=== PATIENT | male | born 1955 | race Caucasian/White ===

== ENCOUNTER → 2019-02-05 | Outpatient (CLI) | payer OTHER ==
[~2019-02-05] MED LIST: ACET325T14 PO; AMLO-150 PO; CITA20TA6 PO; DICL50TA2 PO; DICL75TA3 PO; DOXY100T PO; FEXO1TAB29 PO; GLUC-111 PO; HYDR50TA3 PO; MULT-642 PO; OMEG1CAP26 PO; OXYC-307 PO; TRAM100T3 PO; TRIA1TAB3 PO
[2019-02-05 09:13] LABS: HCT (SEDRATE) 46.1 % (39.2-51.8)
[2019-02-05 09:15] LABS: BASOPHILS # (AUTO) 0.03 x10^3/uL (0-0.1); BASOPHILS % (AUTO) 0 % (0-1); EOSINOPHILS % (AUTO) 4 % (1-7); LYMPHOCYTES # (AUTO) 1.74 x10^3/uL (1-3.4); LYMPHOCYTES % (AUTO) 21 % (22-44); MD NO; MEAN CORPUSCULAR HEMOGLOBIN 31.6 pg (27.5-34.5); MEAN CORPUSCULAR HGB CONC 33.9 g/dL (33.2-36.2); MEAN CORPUSCULAR VOLUME 93.4 fL (81-97); MEAN PLATELET VOLUME 8.4 fL (7.4-10.4); MONOCYTES # (AUTO) 0.51 x10^3/uL (0.2-0.8); MONOCYTES % (AUTO) 6 % (2-9); NEUTROPHILS # (AUTO) 5.81 x10^3/uL (1.8-6.8); NEUTROPHILS % (AUTO) 69 % (42-75); PLATELET COUNT 251 x10^3/uL (130-400); RED BLOOD COUNT 4.93 x10^6/uL (4.38-5.82); RED CELL DISTRIBUTION WIDTH 13.7 % (9.4-14.8)
[2019-02-05 09:28] LABS: INTERNATIONAL NORMALIZED RATIO 0.95 (0.93-1.1)
[2019-02-05 09:46] LABS: MICROSCOPIC NOT IND
[2019-02-05 09:56] LABS: CULTURE INDICATED? NO
[2019-02-05 10:28] LABS: ALBUMIN 3.9 g/dL (3.4-5.0); ANION GAP 6 mmol/L (5-15); CHLORIDE 111 mmol/L (98-107)
[2019-02-05 10:31] LABS: ALANINE AMINOTRANSFERASE 31 U/L (12-78); ALKALINE PHOSPHATASE 88 U/L (45-117); BILIRUBIN,TOTAL 0.8 mg/dL (0.2-1.0); CREATININE 1.55 mg/dL (0.7-1.3)
== END | disposition home or self-care (01) ==
LOC: STAR 07:55
PROVIDERS: ATTEND Orthopaedic Surgery Orthopaedic Surgery of the Spine
DX: Z01.818 Encounter for other preprocedural examination (principal); M51.36 Other intervertebral disc degeneration, lumbar region; M48.061 Spinal stenosis, lumbar region without neurogenic claudication; M54.16 Radiculopathy, lumbar region
CPT/HCPCS: 36415; 71046; 80053; 81003; 85025; 85610; 85651; 85730; 93005

== ENCOUNTER 2019-02-23 07:53 | Inpatient (IN) | payer OTHER ==
[~2019-02-23] VITALS: Ht 190.5 cm; Wt 114.7 kg
[~2019-02-23 07:53] MED LIST changes: +BACITRACIN 50,000 UNIT ONE; +BUPIVACAINE/PF 0.5% ONE; +EPINEPHRINE 1 MG/ML, 1ML ONE; +THROMBIN 20,000 UNIT VIAL TP ONE; +TRANEXAMIC ACID 100 MG/ML, 10ML ONE; +VANCOMYCIN 1,000 MG ONE
[2019-02-23] MEDS ORDERED: LACTATED RINGERS 1,000 ML IV SCH (08:15)
[2019-02-23] MEDS ORDERED: PROPOFOL 50 ML ONE ×6 (09:29→13:25)
[2019-02-23] MEDS ORDERED: PROPOFOL 10 MG/ML, 20ML ONE ×4 (09:29→12:21)
[2019-02-23] MEDS ORDERED: CEFAZOLIN 1,000 MG ONE ×2 (09:29)
[2019-02-23] MEDS ORDERED: MIDAZOLAM 1 MG/ML, 2ML ONE (09:32)
[2019-02-23] MEDS ORDERED: FENTANYL PF 100 MCG/2ML ONE ×3 (09:33→15:26)
[2019-02-23] MEDS ORDERED: VANCOMYCIN PMX 1GM/200ML 200 ML IV ONE (10:30)
[2019-02-23] MEDS ORDERED: MEPERIDINE/PF 25MG/0.5ML IVPush PRN (11:00)
[2019-02-23] MEDS ORDERED: MORPHINE SULFATE 4 MG/ML, 1ML IVPush PRN (11:00)
[2019-02-23] MEDS ORDERED: FENTANYL PF 100 MCG/2ML IV PRN (11:00)
[2019-02-23] MEDS ORDERED: OXYcodone 5 MG/5 ML ORAL.SOL UDC PO PRN (11:00)
[2019-02-23] MEDS ORDERED: HYDROcodone/APAP 7.5-325MG/15ML UDC PO PRN (11:00)
[2019-02-23] MEDS ORDERED: HYDROmorphone 2 MG/ML, 1ML IVPush PRN (11:00)
[2019-02-23] MEDS ORDERED: ACETAMINOPHEN 325 MG TABLET PO PRN (11:00)
[2019-02-23] MEDS ORDERED: SUGAMMADEX 200 MG/2 ML IVPush ONE (12:44)
[2019-02-23] MEDS ORDERED: PHENYLEPHRINE 10 MG/ML ONE (13:20)
[2019-02-23] MEDS ORDERED: ROCURONIUM 10 MG/ML,10ML ONE (13:20)
[2019-02-23] MEDS ORDERED: OXYcodone 5 MG/5 ML ORAL.SOL UDC ONE (15:26)
[2019-02-23 18:20] VITALS: BP 129/78
[2019-02-23] MEDS ORDERED: morphine SULFATE 10 MG/ML, 1ML IV PRN (18:30)
[2019-02-23] MEDS ORDERED: PROMETHAZINE 25 MG/ML, 1ML IM PRN (18:30)
[2019-02-23] MEDS ORDERED: DIAZEPAM 5 MG/ML, 2ML IV PRN (18:30)
[2019-02-23] MEDS ORDERED: DIPHENHYDRAMINE 50 MG CAPSULE PO PRN (18:30)
[2019-02-23] MEDS ORDERED: KETOROLAC 30 MG/1 ML IV PRN (18:30)
[2019-02-23] MEDS ORDERED: LORazepam 1MG TABLET PO PRN (18:30)
[2019-02-23] MEDS ORDERED: ACETAMINOPHEN 650 MG SUPP PR PRN (18:30)
[2019-02-23] MEDS ORDERED: MAGNESIUM HYDROXIDE 8%, 30ML UDC PO PRN (18:30)
[2019-02-23] MEDS ORDERED: ONDANSETRON 2MG/ML, 2ML IV PRN (18:30)
[2019-02-23] MEDS ORDERED: LABETALOL 5MG/ML, 20ML IV PRN (18:30)
[2019-02-23] MEDS ORDERED: DIPHENHYDRAMINE 50 MG/ML, 1ML IM PRN (18:30)
[2019-02-23] MEDS ORDERED: DIPHENHYDRAMINE 50 MG/ML, 1ML IVPush PRN (18:30)
[2019-02-23] MEDS ORDERED: BISACODYL 10 MG SUPP PR PRN (18:30)
[2019-02-23] MEDS: D5%-0.9% NACL+KCL 20MEQ 1,000 ML IV SCH (18:36)
[2019-02-23] MEDS: CEFAZOLIN PMX 1GM/50ML 50 ML IVPB SCH (18:41)
[2019-02-23] MEDS ORDERED: ZOLPIDEM 5MG TABLET PO PRN (21:00)
[2019-02-24] VITALS: BP 116/60
[2019-02-24] MEDS: CEFAZOLIN PMX 1GM/50ML 50 ML IVPB SCH (02:37)
[2019-02-24] MEDS: D5%-0.9% NACL+KCL 20MEQ 1,000 ML IV SCH ×3 (05:23→23:07)
[2019-02-24 05:41] LABS: BASOPHILS % (AUTO) 0 % (0-1); EOSINOPHILS # (AUTO) 0.01 x10^3/uL (0-0.4); EOSINOPHILS % (AUTO) 0 % (1-7); LYMPHOCYTES # (AUTO) 0.79 x10^3/uL (1-3.4); LYMPHOCYTES % (AUTO) 7 % (22-44); MD NO; MEAN CORPUSCULAR HEMOGLOBIN 31.9 pg (27.5-34.5); MEAN CORPUSCULAR VOLUME 93.7 fL (81-97); MEAN PLATELET VOLUME 8.8 fL (7.4-10.4); MONOCYTES # (AUTO) 0.77 x10^3/uL (0.2-0.8); MONOCYTES % (AUTO) 7 % (2-9); NEUTROPHILS % (AUTO) 86 % (42-75); PLATELET COUNT 170 x10^3/uL (130-400); RED BLOOD COUNT 4.11 x10^6/uL (4.38-5.82); RED CELL DISTRIBUTION WIDTH 14.2 % (9.4-14.8)
[2019-02-24] MEDS: DIAZEPAM 5 MG TABLET PO PRN (06:44)
[2019-02-24 07:33] VITALS: BP 113/56
[2019-02-24] MEDS: SENNA/DOCUSATE TABLET PO SCH (08:17)
[2019-02-24] MEDS: DEXAMETHASONE 4 MG/ML, 1ML IVPush PRN (08:18)
[2019-02-24] MEDS: ACETAMINOPHEN 500 MG TABLET PO PRN (10:21)
[2019-02-24 12:42] VITALS: BP 96/59
[2019-02-24 19:22] VITALS: BP 115/64
[2019-02-25 00:11] VITALS: BP 119/59
[2019-02-25] MEDS: KETOROLAC 30 MG/1 ML IV PRN ×2 (01:35→20:07)
[2019-02-25] MEDS: D5%-0.9% NACL+KCL 20MEQ 1,000 ML IV SCH ×2 (01:40→20:07)
[2019-02-25 05:18] LABS: BASOPHILS # (AUTO) 0.04 x10^3/uL (0-0.1); BASOPHILS % (AUTO) 0 % (0-1); EOSINOPHILS # (AUTO) 0.03 x10^3/uL (0-0.4); EOSINOPHILS % (AUTO) 0 % (1-7); LYMPHOCYTES # (AUTO) 1.16 x10^3/uL (1-3.4); LYMPHOCYTES % (AUTO) 11 % (22-44); MD NO; MEAN CORPUSCULAR HGB CONC 33.7 g/dL (33.2-36.2); MEAN CORPUSCULAR VOLUME 94.9 fL (81-97); MEAN PLATELET VOLUME 8.3 fL (7.4-10.4); MONOCYTES # (AUTO) 0.74 x10^3/uL (0.2-0.8); MONOCYTES % (AUTO) 7 % (2-9); NEUTROPHILS # (AUTO) 8.57 x10^3/uL (1.8-6.8); NEUTROPHILS % (AUTO) 81 % (42-75); PLATELET COUNT 122 x10^3/uL (130-400); RED BLOOD COUNT 3.51 x10^6/uL (4.38-5.82); RED CELL DISTRIBUTION WIDTH 14.6 % (9.4-14.8)
[2019-02-25 05:25] LABS: ANION GAP 7 mmol/L (5-15); CALCIUM 7.8 mg/dL (8.5-10.1); CHLORIDE 110 mmol/L (98-107); CREATININE 1.78 mg/dL (0.7-1.3)
[2019-02-25 07:19] VITALS: BP 95/51
[2019-02-25] MEDS: AMLODIPINE 5 MG TABLET PO SCH (09:00)
[2019-02-25] MEDS: OMEGA-3/FISH OIL CAPSULE PO SCH (09:06)
[2019-02-25] MEDS: TRIAMTERENE-HCTZ 37.5/25 MG TABLET PO SCH (09:08)
[2019-02-25] MEDS: CITALOPRAM 20 MG TABLET PO SCH (09:08)
[2019-02-25] MEDS: SENNA/DOCUSATE TABLET PO SCH (09:09)
[2019-02-25] MEDS: MULTIVITAMIN 1 TABLET PO SCH (09:09)
[2019-02-25 09:11] VITALS: BP 93/59
[2019-02-25] MEDS: ACETAMINOPHEN 500 MG TABLET PO PRN (11:56)
[2019-02-25 12:28] VITALS: BP 107/66
[2019-02-25 16:07] VITALS: BP 114/58
[2019-02-25] MEDS: OXYcodone IR 5MG TABLET PO PRN ×2 (16:11→16:43)
[2019-02-25 21:28] VITALS: BP 103/56
[2019-02-26 02:46] VITALS: BP 98/61
[2019-02-26 06:29] LABS: BASOPHILS # (AUTO) 0.05 x10^3/uL (0-0.1); BASOPHILS % (AUTO) 1 % (0-1); EOSINOPHILS # (AUTO) 0.24 x10^3/uL (0-0.4); EOSINOPHILS % (AUTO) 2 % (1-7); LYMPHOCYTES % (AUTO) 13 % (22-44); MD NO; MEAN CORPUSCULAR HEMOGLOBIN 32.7 pg (27.5-34.5); MEAN CORPUSCULAR HGB CONC 34.8 g/dL (33.2-36.2); MEAN CORPUSCULAR VOLUME 94.1 fL (81-97); MEAN PLATELET VOLUME 9.1 fL (7.4-10.4); MONOCYTES # (AUTO) 0.76 x10^3/uL (0.2-0.8); MONOCYTES % (AUTO) 8 % (2-9); NEUTROPHILS # (AUTO) 7.77 x10^3/uL (1.8-6.8); NEUTROPHILS % (AUTO) 77 % (42-75); PLATELET COUNT 130 x10^3/uL (130-400); RED BLOOD COUNT 3.46 x10^6/uL (4.38-5.82); RED CELL DISTRIBUTION WIDTH 14.2 % (9.4-14.8)
[2019-02-26] MEDS: D5%-0.9% NACL+KCL 20MEQ 1,000 ML IV SCH ×2 (06:30→16:30)
[2019-02-26 06:38] LABS: ANION GAP 5 mmol/L (5-15); CALCIUM 8.5 mg/dL (8.5-10.1); CHLORIDE 110 mmol/L (98-107); CREATININE 1.53 mg/dL (0.7-1.3)
[2019-02-26 07:30] VITALS: BP 111/52
[2019-02-26] MEDS: OMEGA-3/FISH OIL CAPSULE PO SCH (07:57)
[2019-02-26] MEDS: TRIAMTERENE-HCTZ 37.5/25 MG TABLET PO SCH (07:58)
[2019-02-26] MEDS: MULTIVITAMIN 1 TABLET PO SCH (07:58)
[2019-02-26] MEDS: AMLODIPINE 5 MG TABLET PO SCH (07:58)
[2019-02-26] MEDS: CITALOPRAM 20 MG TABLET PO SCH (07:58)
[2019-02-26] MEDS: SENNA/DOCUSATE TABLET PO SCH (07:59)
[2019-02-26] MEDS: OXYcodone IR 5MG TABLET PO PRN ×2 (08:41→12:14)
[2019-02-26 14:05] VITALS: BP 147/57
[2019-02-26] MEDS: KETOROLAC 30 MG/1 ML IV PRN (16:01)
[2019-02-26] MEDS: DEXAMETHASONE 4 MG/ML, 1ML IVPush PRN ×2 (16:01→21:59)
[2019-02-26 20:02] VITALS: BP 108/67
[2019-02-27 02:31] VITALS: BP 112/70
[2019-02-27] MEDS: D5%-0.9% NACL+KCL 20MEQ 1,000 ML IV SCH ×3 (04:37→22:30)
[2019-02-27 05:47] LABS: BASOPHILS % (AUTO) 0 % (0-1); EOSINOPHILS % (AUTO) 0 % (1-7); LYMPHOCYTES # (AUTO) 0.52 x10^3/uL (1-3.4); LYMPHOCYTES % (AUTO) 7 % (22-44); MD NO; MEAN CORPUSCULAR VOLUME 94.2 fL (81-97); MEAN PLATELET VOLUME 9.4 fL (7.4-10.4); MONOCYTES # (AUTO) 0.19 x10^3/uL (0.2-0.8); MONOCYTES % (AUTO) 3 % (2-9); NEUTROPHILS # (AUTO) 6.62 x10^3/uL (1.8-6.8); NEUTROPHILS % (AUTO) 90 % (42-75); PLATELET COUNT 148 x10^3/uL (130-400); RED BLOOD COUNT 3.61 x10^6/uL (4.38-5.82); RED CELL DISTRIBUTION WIDTH 14.3 % (9.4-14.8)
[2019-02-27 05:50] LABS: ANION GAP 8 mmol/L (5-15); CALCIUM 8.9 mg/dL (8.5-10.1); CHLORIDE 107 mmol/L (98-107)
[2019-02-27] MEDS: KETOROLAC 30 MG/1 ML IV PRN ×2 (08:06→20:39)
[2019-02-27 08:15] VITALS: BP 118/74
[2019-02-27] MEDS: OMEGA-3/FISH OIL CAPSULE PO SCH (09:53)
[2019-02-27] MEDS: TRIAMTERENE-HCTZ 37.5/25 MG TABLET PO SCH (09:53)
[2019-02-27] MEDS: SENNA/DOCUSATE TABLET PO SCH (09:53)
[2019-02-27] MEDS: CITALOPRAM 20 MG TABLET PO SCH (09:53)
[2019-02-27] MEDS: MULTIVITAMIN 1 TABLET PO SCH (09:53)
[2019-02-27] MEDS: AMLODIPINE 5 MG TABLET PO SCH (09:53)
[2019-02-27 12:00] VITALS: BP 116/67
[2019-02-27 19:15] VITALS: BP 116/65
[2019-02-27] MEDS: DIAZEPAM 5 MG TABLET PO PRN (20:39)
[2019-02-28 00:44] VITALS: BP 114/69
[2019-02-28 07:36] LABS: MEAN CORPUSCULAR HEMOGLOBIN 31.8 pg (27.5-34.5); MEAN CORPUSCULAR HGB CONC 33.6 g/dL (33.2-36.2); MEAN CORPUSCULAR VOLUME 94.5 fL (81-97); MEAN PLATELET VOLUME 9.2 fL (7.4-10.4); PLATELET COUNT 208 x10^3/uL (130-400); RED BLOOD COUNT 3.56 x10^6/uL (4.38-5.82)
[2019-02-28 07:40] LABS: ANION GAP 7 mmol/L (5-15); CALCIUM 9.1 mg/dL (8.5-10.1); CHLORIDE 111 mmol/L (98-107); CREATININE 1.37 mg/dL (0.7-1.3)
[2019-02-28 07:47] LABS: BASOPHILS # (AUTO) 0.02 x10^3/uL (0-0.1); BASOPHILS % (AUTO) 0 % (0-1); EOSINOPHILS # (AUTO) 0.04 x10^3/uL (0-0.4); EOSINOPHILS % (AUTO) 0 % (1-7); LYMPHOCYTES # (AUTO) 1.47 x10^3/uL (1-3.4); LYMPHOCYTES % (AUTO) 13 % (22-44); MD NO; MONOCYTES # (AUTO) 0.72 x10^3/uL (0.2-0.8); MONOCYTES % (AUTO) 7 % (2-9); NEUTROPHILS % (AUTO) 80 % (42-75)
[2019-02-28] MEDS: CITALOPRAM 20 MG TABLET PO SCH (08:30)
[2019-02-28] MEDS: AMLODIPINE 5 MG TABLET PO SCH (08:30)
[2019-02-28] MEDS: MULTIVITAMIN 1 TABLET PO SCH (08:30)
[2019-02-28] MEDS: OMEGA-3/FISH OIL CAPSULE PO SCH (08:30)
[2019-02-28] MEDS: TRIAMTERENE-HCTZ 37.5/25 MG TABLET PO SCH (08:30)
[2019-02-28] MEDS: SENNA/DOCUSATE TABLET PO SCH (08:30)
[2019-02-28] MEDS: KETOROLAC 30 MG/1 ML IV PRN (08:30)
[2019-02-28] MEDS: D5%-0.9% NACL+KCL 20MEQ 1,000 ML IV SCH (08:30)
[2019-02-28 08:49] VITALS: BP 107/68
[2019-02-28] MEDS: ACETAMINOPHEN 500 MG TABLET PO PRN (11:30)
[2019-02-28 12:30] VITALS: BP 119/72
[2019-02-28 13:22] VITALS: BP 133/81
[2019-02-28] MEDS ORDERED: OXYC10TA6 PO (13:54)
[2019-02-28] MEDS ORDERED: DIAZ5TAB4 PO (13:56)
[2019-02-28] MEDS ORDERED: CEPH-368 PO (13:57)
== END 2019-02-28 15:00 | disposition home health service (06) | DRG 455 ==
LOC: ORIP 07:53 → 4NOR 17:30 → DCLOUNGE 02-28 13:56
PROVIDERS: ADMIT Orthopaedic Surgery Orthopaedic Surgery of the Spine; ATTEND Orthopaedic Surgery Orthopaedic Surgery of the Spine
PROC: 0SG10AJ Fusion of 2 or more Lumbar Vertebral Joints with Interbody Fusion Device, Posterior Approach, Anterior Column, Open Approach (ICD-10-PCS; 2019-02-23)
PROC: 0SG1071 Fusion of 2 or more Lumbar Vertebral Joints with Autologous Tissue Substitute, Posterior Approach, Posterior Column, Open Approach (ICD-10-PCS; 2019-02-23)
PROC: 0SP004Z Removal of Internal Fixation Device from Lumbar Vertebral Joint, Open Approach (ICD-10-PCS; 2019-02-23)
PROC: 0QB23ZZ Excision of Right Pelvic Bone, Percutaneous Approach (ICD-10-PCS; 2019-02-23)
PROC: 0ST20ZZ Resection of Lumbar Vertebral Disc, Open Approach (ICD-10-PCS; 2019-02-23)
PROC: 01NB0ZZ Release Lumbar Nerve, Open Approach (ICD-10-PCS; 2019-02-23)
PROC: 01NR0ZZ Release Sacral Nerve, Open Approach (ICD-10-PCS; 2019-02-23)
PROC: 0ST40ZZ Resection of Lumbosacral Disc, Open Approach (ICD-10-PCS; 2019-02-23)
PROC: 0SG30AJ Fusion of Lumbosacral Joint with Interbody Fusion Device, Posterior Approach, Anterior Column, Open Approach (ICD-10-PCS; 2019-02-23)
PROC: 0SG3071 Fusion of Lumbosacral Joint with Autologous Tissue Substitute, Posterior Approach, Posterior Column, Open Approach (ICD-10-PCS; 2019-02-23)
PROC: 4A11X4G Monitoring of Peripheral Nervous Electrical Activity, Intraoperative, External Approach (ICD-10-PCS; 2019-02-23)
PROC: 0SP304Z Removal of Internal Fixation Device from Lumbosacral Joint, Open Approach (ICD-10-PCS; principal; 2019-02-23 09:30)
PROC: 5A09357 Assistance with Respiratory Ventilation, Less than 24 Consecutive Hours, Continuous Positive Airway Pressure (ICD-10-PCS; 2019-02-25)
PROC: 5A09357 Assistance with Respiratory Ventilation, Less than 24 Consecutive Hours, Continuous Positive Airway Pressure (ICD-10-PCS; 2019-02-26)
PROC: 5A09357 Assistance with Respiratory Ventilation, Less than 24 Consecutive Hours, Continuous Positive Airway Pressure (ICD-10-PCS; 2019-02-28)
DX: M48.061 Spinal stenosis, lumbar region without neurogenic claudication (principal); M43.16 Spondylolisthesis, lumbar region; M54.16 Radiculopathy, lumbar region
CPT/HCPCS: 36415; 72100; 80048; 85025; 86850; 86870; 86900; 86922; 86923; C1713; G0378; J0171; J0690; J1100; J1885; J2250; J2270; J2704; J3010; J3370; J3490; C1760; C1762; C1763; C9352; C9362; J2370; J3480

== ENCOUNTER → 2020-03-31 | Outpatient (CLI) | payer OTHER, MEDICARE ==
[~2020-03-31] MED LIST changes: -BACITRACIN 50,000 UNIT ONE; -BUPIVACAINE/PF 0.5% ONE; +CEPH-368 PO; +DIAZ5TAB4 PO; -EPINEPHRINE 1 MG/ML, 1ML ONE; +GABA-826 PO; +OXYC10TA6 PO; -THROMBIN 20,000 UNIT VIAL TP ONE; +TRAM50TA2 PO; -TRANEXAMIC ACID 100 MG/ML, 10ML ONE; -VANCOMYCIN 1,000 MG ONE
[2020-03-31 11:56] LABS: HCT (SEDRATE) 49.8 % (39.2-51.8)
[2020-03-31 11:57] LABS: BASOPHILS # (AUTO) 0.05 x10^3/uL (0-0.1); BASOPHILS % (AUTO) 1 % (0-1); EOSINOPHILS # (AUTO) 0.26 x10^3/uL (0-0.4); EOSINOPHILS % (AUTO) 4 % (1-7); LYMPHOCYTES # (AUTO) 1.51 x10^3/uL (1-3.4); LYMPHOCYTES % (AUTO) 21 % (22-44); MD NO; MEAN CORPUSCULAR HEMOGLOBIN 31.8 pg (27.5-34.5); MEAN CORPUSCULAR HGB CONC 33.8 g/dL (33.2-36.2); MEAN CORPUSCULAR VOLUME 94.1 fL (81-97); MEAN PLATELET VOLUME 9.7 fL (7.4-10.4); MONOCYTES # (AUTO) 0.62 x10^3/uL (0.2-0.8); MONOCYTES % (AUTO) 9 % (2-9); NEUTROPHILS # (AUTO) 4.74 x10^3/uL (1.8-6.8); NEUTROPHILS % (AUTO) 66 % (42-75); PLATELET COUNT 205 x10^3/uL (130-400); RED BLOOD COUNT 5.29 x10^6/uL (4.38-5.82)
[2020-03-31 12:03] LABS: INTERNATIONAL NORMALIZED RATIO 0.93 (0.93-1.1); PROTHROMBIN TIME 9.9 Seconds (9.6-11.5)
[2020-03-31 12:06] LABS: ALBUMIN 3.9 g/dL (3.4-5.0); ANION GAP 4 mmol/L (5-15); CHLORIDE 109 mmol/L (98-107)
[2020-03-31 12:12] LABS: ALANINE AMINOTRANSFERASE 29 U/L (12-78); ALKALINE PHOSPHATASE 94 U/L (45-117); BILIRUBIN,TOTAL 0.7 mg/dL (0.2-1.0); CREATININE 1.45 mg/dL (0.7-1.3); TOTAL PROTEIN 8.4 g/dL (6.4-8.2)
== END | disposition home or self-care (01) ==
LOC: STAR 10:46
PROVIDERS: ATTEND Orthopaedic Surgery Orthopaedic Surgery of the Spine
DX: Z01.818 Encounter for other preprocedural examination (principal); Z11.59 Encounter for screening for other viral diseases; T85.898A Other specified complication of other internal prosthetic devices, implants and grafts, initial encounter; Y83.8 Other surgical procedures as the cause of abnormal reaction of the patient, or of later complication, without mention of misadventure at the time of the procedure; Y92.89 Other specified places as the place of occurrence of the external cause
CPT/HCPCS: 36415; 71046; 80053; 83036; 85025; 85610; 85651; 85730; 93005; U0001

== ENCOUNTER → 2020-05-27 | Outpatient (CLI) | payer OTHER, MEDICARE | END | disposition home or self-care (01) | LOC: RAD 16:58 | PROVIDERS: ATTEND Family Medicine | DX: M25.572 Pain in left ankle and joints of left foot (principal) ==

== ENCOUNTER → 2020-06-23 | Outpatient (CLI) | payer OTHER, MEDICARE ==
[~2020-06-23] MED LIST changes: +BUDE10.2 INH; +CYAN1TAB29 PO; +POTA10TA5 PO; +PREG150C PO; +[UNRECOGNIZED DRUG - REMARK] TP
== END | disposition home or self-care (01) ==
LOC: STAR 10:36
PROVIDERS: ATTEND Orthopaedic Surgery Orthopaedic Surgery of the Spine
DX: Z01.818 Encounter for other preprocedural examination (principal); Z11.59 Encounter for screening for other viral diseases
CPT/HCPCS: 36415; 87635

== ENCOUNTER 2020-06-27 07:33 | Inpatient (IN) | payer OTHER, MEDICARE ==
[2020-06-24 11:14] LABS: BASOPHILS # (AUTO) 0.03 x10^3/uL (0-0.1); BASOPHILS % (AUTO) 1 % (0-1); EOSINOPHILS # (AUTO) 0.18 x10^3/uL (0-0.4); EOSINOPHILS % (AUTO) 3 % (1-7); HCT (SEDRATE) 47.7 % (39.2-51.8); LYMPHOCYTES # (AUTO) 1.27 x10^3/uL (1-3.4); LYMPHOCYTES % (AUTO) 19 % (22-44); MD NO; MEAN CORPUSCULAR HEMOGLOBIN 32.1 pg (27.5-34.5); MEAN CORPUSCULAR HGB CONC 33.8 g/dL (33.2-36.2); MEAN CORPUSCULAR VOLUME 94.8 fL (81-97); MEAN PLATELET VOLUME 9.3 fL (7.4-10.4); MONOCYTES # (AUTO) 0.44 x10^3/uL (0.2-0.8); MONOCYTES % (AUTO) 7 % (2-9); NEUTROPHILS # (AUTO) 4.67 x10^3/uL (1.8-6.8); NEUTROPHILS % (AUTO) 71 % (42-75); PLATELET COUNT 190 x10^3/uL (130-400); RED BLOOD COUNT 5.01 x10^6/uL (4.38-5.82); RED CELL DISTRIBUTION WIDTH 14.2 % (9.4-14.8)
[2020-06-24 11:24] LABS: INTERNATIONAL NORMALIZED RATIO 0.97 (0.93-1.1)
[2020-06-24 11:25] LABS: ALANINE AMINOTRANSFERASE 32 U/L (12-78); ALBUMIN 4.1 g/dL (3.4-5.0); ANION GAP 4 mmol/L (5-15); CALCIUM 9.2 mg/dL (8.5-10.1); CHLORIDE 113 mmol/L (98-107); CREATININE 1.38 mg/dL (0.7-1.3)
[2020-06-24 11:27] LABS: ALKALINE PHOSPHATASE 89 U/L (45-117); BILIRUBIN,TOTAL 0.8 mg/dL (0.2-1.0); TOTAL PROTEIN 7.9 g/dL (6.4-8.2)
[~2020-06-27] VITALS: Ht 190.5 cm; Wt 114.0 kg
[2020-06-27] MEDS ORDERED: LACTATED RINGERS 1,000 ML IV SCH (08:11)
[2020-06-27 08:12] VITALS: BP 151/82
[2020-06-27] MEDS ORDERED: CHLORHEXIDINE 15 ML UDC ONE (08:18)
[2020-06-27] MEDS ORDERED: CHLORHEXIDINE 15 ML UDC MM ONE (08:30)
[2020-06-27] MEDS ORDERED: VANCOMYCIN PMX 1GM/200ML 200 ML IV ONE (08:30)
[2020-06-27] MEDS ORDERED: TRANEXAMIC ACID 100 MG/ML, 10ML ONE ×2 (09:03)
[2020-06-27] MEDS ORDERED: BUPIVACAINE/PF-EPI 0.5% 1:200K ONE (09:03)
[2020-06-27] MEDS ORDERED: VANCOMYCIN 1,000 MG ONE (09:03)
[2020-06-27] MEDS ORDERED: BACITRACIN 50,000 UNIT ONE (09:03)
[2020-06-27] MEDS ORDERED: SODIUM CHLORIDE 0.9% 1,000 ML IV PRN (09:33)
[2020-06-27] MEDS ORDERED: FENTANYL PF 250 MCG/5ML ONE (09:36)
[2020-06-27] MEDS ORDERED: MIDAZOLAM 1 MG/ML, 2ML ONE (09:36)
[2020-06-27] MEDS ORDERED: morphine SULFATE 10 MG/ML, 1ML IVPush PRN (10:00)
[2020-06-27] MEDS ORDERED: BISACODYL 10 MG SUPP PR PRN (10:00)
[2020-06-27] MEDS ORDERED: DIPHENHYDRAMINE 50 MG/ML, 1ML IM PRN (10:00)
[2020-06-27] MEDS ORDERED: SENNA/DOCUSATE TABLET PO PRN (10:00)
[2020-06-27] MEDS ORDERED: OXYcodone IR 5MG TABLET PO PRN ×2 (10:00)
[2020-06-27] MEDS ORDERED: LORazepam 1MG TABLET PO PRN (10:00)
[2020-06-27] MEDS ORDERED: DEXAMETHASONE 4 MG/ML, 5ML IVPush PRN (10:00)
[2020-06-27] MEDS ORDERED: HYDROcodone/APAP 5/325 TABLET PO PRN (10:00)
[2020-06-27] MEDS ORDERED: MAGNESIUM HYDROXIDE 8%, 30ML UDC PO PRN (10:00)
[2020-06-27] MEDS ORDERED: ACETAMINOPHEN 500 MG TABLET PO PRN (10:00)
[2020-06-27] MEDS ORDERED: KETOROLAC 30 MG/1 ML IVPush ONE (10:00)
[2020-06-27] MEDS ORDERED: PROMETHAZINE 25 MG/ML, 1ML IM PRN (10:00)
[2020-06-27] MEDS ORDERED: DIAZEPAM 5 MG TABLET PO PRN (10:00)
[2020-06-27] MEDS ORDERED: LABETALOL 5MG/ML, 20ML IVPush PRN (10:00)
[2020-06-27] MEDS ORDERED: ONDANSETRON 2MG/ML, 2ML IV PRN (10:00)
[2020-06-27] MEDS ORDERED: FENTANYL PF 100 MCG/2ML ONE (11:04)
[2020-06-27] MEDS ORDERED: GLYCOPYRROLATE 0.2MG/1ML, 5ML ONE (11:18)
[2020-06-27] MEDS ORDERED: NEOSTIGMINE 1 MG/ML, 10ML ONE (11:18)
[2020-06-27] MEDS ORDERED: ONDANSETRON 2MG/ML, 2ML ONE (11:18)
[2020-06-27] MEDS ORDERED: PROPOFOL 10 MG/ML, 20ML ONE (11:18)
[2020-06-27] MEDS ORDERED: DEXAMETHASONE 4 MG/ML, 1ML ONE (11:18)
[2020-06-27] MEDS ORDERED: SUCCINYLCHOLINE 20 MG/ML, 10ML ONE (11:18)
[2020-06-27] MEDS ORDERED: CEFAZOLIN 1,000 MG ONE (11:18)
[2020-06-27] MEDS ORDERED: ROCURONIUM 10MG/ML,5ML ONE (11:18)
[2020-06-27] MEDS ORDERED: PROMETHAZINE 25 MG SUPP PR PRN (11:30)
[2020-06-27] MEDS ORDERED: ACETAMINOPHEN 325 MG TABLET PO PRN (11:30)
[2020-06-27] MEDS ORDERED: OXYcodone 5 MG/5 ML ORAL.SOL UDC PO PRN (11:30)
[2020-06-27] MEDS ORDERED: FENTANYL PF 100 MCG/2ML IV PRN (11:30)
[2020-06-27] MEDS ORDERED: ONDANSETRON 2MG/ML, 2ML IVPush PRN (11:30)
[2020-06-27] MEDS ORDERED: HYDROmorphone 1 MG/ML, 1ML INJ IVPush PRN (11:30)
[2020-06-27] MEDS ORDERED: PROMETHAZINE 25 MG/ML, 1ML IVPush PRN (11:30)
[2020-06-27] MEDS ORDERED: hydrALAzine 20 MG/ML, 1ML IV PRN (11:30)
[2020-06-27] MEDS ORDERED: LABETALOL 5MG/ML, 20ML IV PRN (11:30)
[2020-06-27] MEDS: METHOCARBAMOL 1,000 MG in DEXTROSE 5% 100 ML IV SCH ×2 (12:00→21:13)
[2020-06-27] MEDS ORDERED: KETOROLAC 30 MG/1 ML ONE (12:21)
[2020-06-27] MEDS ORDERED: OXYcodone 5 MG/5 ML ORAL.SOL UDC ONE (12:37)
[2020-06-27] MEDS ORDERED: ALBUTEROL SULFATE 2.5 MG/3 ML HHN SCH (14:00)
[2020-06-27] MEDS: DICLOFENAC SODIUM 75 MG TABLET.DR PO SCH (16:46)
[2020-06-27] MEDS: PREGABALIN 150 MG CAPSULE PO SCH ×2 (16:46→21:13)
[2020-06-27] MEDS: CYANOCOBALAMIN MC SCH ×2 (17:47→22:00)
[2020-06-27] MEDS: D5%-0.9% NACL+KCL 20MEQ 1,000 ML IV SCH ×2 (18:14→20:00)
[2020-06-27] MEDS: CEFAZOLIN PMX 1GM/50ML 50 ML IVPB SCH (18:14)
[2020-06-27 18:20] VITALS: BP 117/74
[2020-06-27] MEDS ORDERED: ZOLPIDEM 5MG TABLET PO PRN (21:00)
[2020-06-27] MEDS ORDERED: BUDESONIDE 0.5 MG/2 ML INHA HHN SCH (21:00)
[2020-06-28 01:06] VITALS: BP 105/61
[2020-06-28] MEDS: CEFAZOLIN PMX 1GM/50ML 50 ML IVPB SCH (02:36)
[2020-06-28 04:13] VITALS: BP 101/66
[2020-06-28] MEDS: METHOCARBAMOL 1,000 MG in DEXTROSE 5% 100 ML IV SCH ×2 (05:22→12:30)
[2020-06-28] MEDS: CYANOCOBALAMIN MC SCH (06:00)
[2020-06-28] MEDS: D5%-0.9% NACL+KCL 20MEQ 1,000 ML IV SCH (06:00)
[2020-06-28 06:54] LABS: BASOPHILS # (AUTO) 0.06 x10^3/uL (0-0.1); BASOPHILS % (AUTO) 1 % (0-1); EOSINOPHILS # (AUTO) 0.02 x10^3/uL (0-0.4); EOSINOPHILS % (AUTO) 0 % (1-7); LYMPHOCYTES # (AUTO) 1.01 x10^3/uL (1-3.4); LYMPHOCYTES % (AUTO) 9 % (22-44); MD NO; MEAN CORPUSCULAR HEMOGLOBIN 31.9 pg (27.5-34.5); MEAN CORPUSCULAR HGB CONC 33.3 g/dL (33.2-36.2); MEAN CORPUSCULAR VOLUME 95.9 fL (81-97); MEAN PLATELET VOLUME 9.3 fL (7.4-10.4); MONOCYTES # (AUTO) 0.87 x10^3/uL (0.2-0.8); MONOCYTES % (AUTO) 8 % (2-9); NEUTROPHILS # (AUTO) 9.74 x10^3/uL (1.8-6.8); NEUTROPHILS % (AUTO) 83 % (42-75); PLATELET COUNT 157 x10^3/uL (130-400); RED BLOOD COUNT 4.31 x10^6/uL (4.38-5.82); RED CELL DISTRIBUTION WIDTH 14.4 % (9.4-14.8)
[2020-06-28 08:22] VITALS: BP 116/71
[2020-06-28] MEDS: OMEGA-3/FISH OIL CAPSULE PO SCH ×2 (08:25→08:27)
[2020-06-28] MEDS: DICLOFENAC SODIUM 75 MG TABLET.DR PO SCH (08:25)
[2020-06-28] MEDS: PREGABALIN 150 MG CAPSULE PO SCH (08:26)
[2020-06-28] MEDS ORDERED: AMLODIPINE 5 MG TABLET PO SCH (09:00)
[2020-06-28] MEDS ORDERED: MULTIVITAMIN 1 TABLET PO SCH (09:00)
[2020-06-28] MEDS ORDERED: CITALOPRAM 20 MG TABLET PO SCH (09:00)
[2020-06-28] MEDS ORDERED: POTASSIUM CHLORIDE 10 MEQ TABLET.ER PO SCH (09:00)
[2020-06-28] MEDS ORDERED: TRIAMTERENE-HCTZ 37.5/25 MG TABLET PO SCH (09:00)
[2020-06-28 12:04] VITALS: BP 118/75
[2020-06-28] MEDS ORDERED: OXYC10TA6 PO (13:23)
[2020-06-28] MEDS ORDERED: DIAZ5TAB PO (13:24)
[2020-06-28] MEDS ORDERED: CEPH-368 PO (13:24)
[2020-06-29] MEDS ORDERED: METHOCARBAMOL 750 MG TABLET PO SCH (18:00)
== END 2020-06-28 13:57 | disposition home or self-care (01) | DRG 520 ==
LOC: ORIP 07:33 → 4NE 13:12 → DCLOUNGE 06-28 13:37
PROVIDERS: ADMIT Orthopaedic Surgery Orthopaedic Surgery of the Spine; ATTEND Orthopaedic Surgery Orthopaedic Surgery of the Spine
PROC: 0QU00KZ Supplement Lumbar Vertebra with Nonautologous Tissue Substitute, Open Approach (ICD-10-PCS; 2020-06-27)
PROC: 00PU0YZ Removal of Other Device from Spinal Canal, Open Approach (ICD-10-PCS; principal; 2020-06-27 09:30)
PROC: 5A09357 Assistance with Respiratory Ventilation, Less than 24 Consecutive Hours, Continuous Positive Airway Pressure (ICD-10-PCS; 2020-06-28)
DX: T84.84XA Pain due to internal orthopedic prosthetic devices, implants and grafts, initial encounter (principal); Y83.1 Surgical operation with implant of artificial internal device as the cause of abnormal reaction of the patient, or of later complication, without mention of misadventure at the time of the procedure
CPT/HCPCS: 36415; 71046; 80053; 83036; 85025; 85610; 85651; 85730; 93005; G0378; J0690; J1100; J1885; J2250; J2405; J2704; J2710; J3010; J3370; J0330; J2800; J3480; J7120

== ENCOUNTER → 2020-09-04 | Outpatient (CLI) | payer OTHER, MEDICARE ==
[~2020-09-04] MED LIST changes: +DIAZ5TAB PO
== END | disposition home or self-care (01) ==
LOC: RAD 09:26
PROVIDERS: ATTEND Psychiatry & Neurology Neurology
DX: C90.00 Multiple myeloma not having achieved remission (principal)
CPT/HCPCS: 77075

== ENCOUNTER → 2020-10-22 | Outpatient (CLI) | payer OTHER, MEDICARE ==
[2020-10-22 09:04] LABS: ANION GAP 8 mmol/L (5-15); CHLORIDE 109 mmol/L (98-107)
[2020-10-22 09:07] LABS: ALANINE AMINOTRANSFERASE 22 U/L (12-78); ALKALINE PHOSPHATASE 103 U/L (45-117); BILIRUBIN,TOTAL 0.8 mg/dL (0.2-1.0); CREATININE 1.65 mg/dL (0.7-1.3); TOTAL PROTEIN 8.3 g/dL (6.4-8.2)
== END | disposition home or self-care (01) ==
LOC: LAB 08:34
PROVIDERS: ATTEND Internal Medicine Hematology & Oncology
DX: D47.2 Monoclonal gammopathy (principal)
CPT/HCPCS: 36415; 80053; 82784; 83883; 84155; 84156; 84165; 84166; 86334

== ENCOUNTER → 2021-01-16 | Outpatient (CLI) | payer OTHER, MEDICARE ==
[~2021-01-16] MED LIST changes: -HYDR50TA3 PO; +HYDR50TA6 PO; -OXYC-307 PO; +OXYC-380 PO
[2021-01-16 09:13] LABS: BASOPHILS % (AUTO) 1 % (0-1); EOSINOPHILS % (AUTO) 4 % (1-7); LYMPHOCYTES % (AUTO) 22 % (22-44); MEAN CORPUSCULAR HGB CONC 34.8 g/dL (33.2-36.2); MEAN PLATELET VOLUME 8.8 fL (7.4-10.4); MONOCYTES % (AUTO) 7 % (2-9); NEUTROPHILS % (AUTO) 66 % (42-75); PLATELET COUNT 187 x10^3/uL (130-400); RED BLOOD COUNT 4.91 x10^6/uL (4.38-5.82); RED CELL DISTRIBUTION WIDTH 14.1 % (9.4-14.8)
[2021-01-16 09:18] LABS: CHLORIDE 113 mmol/L (98-107)
[2021-01-16 09:20] LABS: MD NO
[2021-01-16 10:41] LABS: ALANINE AMINOTRANSFERASE 33 U/L (12-78); ALBUMIN 3.9 g/dL (3.4-5.0); ALKALINE PHOSPHATASE 90 U/L (45-117); ANION GAP 9 mmol/L (5-15); BILIRUBIN,TOTAL 0.7 mg/dL (0.2-1.0); CALCIUM 9.5 mg/dL (8.5-10.1); CREATININE 1.42 mg/dL (0.7-1.3); TOTAL PROTEIN 7.9 g/dL (6.4-8.2)
== END | disposition home or self-care (01) ==
LOC: LAB 08:56
PROVIDERS: ATTEND Internal Medicine Hematology & Oncology
DX: D47.2 Monoclonal gammopathy (principal)
CPT/HCPCS: 36415; 80053; 82784; 83883; 84155; 84165; 85025; 86334

== ENCOUNTER → 2021-03-06 | Outpatient (CLI) | payer OTHER, MEDICARE | END | disposition home or self-care (01) | LOC: LAB 10:32 | PROVIDERS: ATTEND Family Medicine | DX: Z11.1 Encounter for screening for respiratory tuberculosis (principal) | CPT/HCPCS: 36415; 86480 ==

== ENCOUNTER 2021-04-21 11:20 | Outpatient (CLI) | payer OTHER, MEDICARE ==
[2021-04-21 11:38] LABS: BASOPHILS % (AUTO) 1 % (0-1); EOSINOPHILS % (AUTO) 2 % (1-7); LYMPHOCYTES % (AUTO) 17 % (22-44); MEAN CORPUSCULAR HEMOGLOBIN 33.3 pg (27.5-34.5); MEAN CORPUSCULAR HGB CONC 34.8 g/dL (33.2-36.2); MEAN PLATELET VOLUME 9.1 fL (7.4-10.4); MONOCYTES % (AUTO) 7 % (2-9); NEUTROPHILS % (AUTO) 73 % (42-75); PLATELET COUNT 189 x10^3/uL (130-400); RED BLOOD COUNT 5.02 x10^6/uL (4.38-5.82); RED CELL DISTRIBUTION WIDTH 13.8 % (9.4-14.8)
[2021-04-21 11:51] LABS: ALANINE AMINOTRANSFERASE 25 U/L (12-78); ALBUMIN 3.9 g/dL (3.4-5.0); ANION GAP 6 mmol/L (5-15); CALCIUM 9.6 mg/dL (8.5-10.1); CHLORIDE 111 mmol/L (98-107); CREATININE 1.31 mg/dL (0.7-1.3)
[2021-04-21 11:53] LABS: ALKALINE PHOSPHATASE 85 U/L (45-117); BILIRUBIN,TOTAL 0.7 mg/dL (0.2-1.0); TOTAL PROTEIN 7.9 g/dL (6.4-8.2)
== END 2021-04-21 23:59 | disposition home or self-care (01) ==
LOC: LAB 11:20
PROVIDERS: ATTEND Internal Medicine Hematology & Oncology
DX: D47.2 Monoclonal gammopathy (principal)
CPT/HCPCS: 36415; 80053; 82784; 83883; 84155; 84165; 85025; 86334

== ENCOUNTER → 2021-08-05 | Outpatient (CLI) | payer OTHER, MEDICARE ==
[~2021-08-05] MED LIST changes: +MECL-101 PO; -OXYC-380 PO; +OXYC-501 PO
[2021-08-05 12:33] LABS: ALBUMIN 3.9 g/dL (3.4-5.0); ANION GAP 7 mmol/L (5-15); CALCIUM 9.3 mg/dL (8.5-10.1); CHLORIDE 109 mmol/L (98-107); CREATININE 1.47 mg/dL (0.7-1.3)
== END | disposition home or self-care (01) ==
LOC: LAB 11:58
PROVIDERS: ATTEND Family Medicine
DX: M10.9 Gout, unspecified (principal)
CPT/HCPCS: 36415; 80069; 84550

== ENCOUNTER 2021-08-07 06:20 | Day surgery (SDC) | payer OTHER, MEDICARE ==
[~2021-08-07] VITALS: Ht 190.5 cm; Wt 115.7 kg
[2021-08-07 06:58] VITALS: BP 147/86
[2021-08-07] MEDS ORDERED: VANCOMYCIN 1,000 MG in SODIUM CHLORIDE 0.9% 100 ML IV ONE (07:00)
[2021-08-07] MEDS ORDERED: VANCOMYCIN PMX 1GM/200ML 200 ML IV ONE (07:00)
[2021-08-07] MEDS ORDERED: LACTATED RINGERS 1,000 ML IV SCH (07:00)
[2021-08-07] MEDS ORDERED: CHLORHEXIDINE 15 ML UDC PO ONE (07:00)
[2021-08-07] MEDS ORDERED: TRANEXAMIC ACID 100 MG/ML, 10ML ONE ×2 (07:16→07:19)
[2021-08-07] MEDS ORDERED: VANCOMYCIN 1,000 MG ONE (07:17)
[2021-08-07] MEDS ORDERED: MIDAZOLAM 1 MG/ML, 2ML ONE ×2 (07:35→07:43)
[2021-08-07] MEDS ORDERED: FENTANYL PF 250 MCG/5ML ONE (07:35)
[2021-08-07] MEDS ORDERED: PROPOFOL 10 MG/ML, 20ML ONE (07:36)
[2021-08-07] MEDS ORDERED: ROCURONIUM 10MG/ML,5ML ONE (07:37)
[2021-08-07 07:41] LABS: BASOPHILS % (AUTO) 1 % (0-1); EOSINOPHILS % (AUTO) 4 % (1-7); LYMPHOCYTES % (AUTO) 13 % (22-44); MEAN CORPUSCULAR HEMOGLOBIN 33.1 pg (27.5-34.5); MEAN CORPUSCULAR HGB CONC 34.9 g/dL (33.2-36.2); MEAN PLATELET VOLUME 9.3 fL (7.4-10.4); MONOCYTES % (AUTO) 7 % (2-9); NEUTROPHILS % (AUTO) 75 % (42-75); PLATELET COUNT 171 x10^3/uL (130-400); RED BLOOD COUNT 4.67 x10^6/uL (4.38-5.82); RED CELL DISTRIBUTION WIDTH 13.7 % (9.4-14.8)
[2021-08-07] MEDS ORDERED: BUPIVACAINE/PF 0.5% ONE ×2 (07:42→09:44)
[2021-08-07] MEDS ORDERED: BUPIVACAINE/PF 0.25% ONE (07:42)
[2021-08-07 07:52] LABS: INTERNATIONAL NORMALIZED RATIO 0.98 (0.93-1.1); PROTHROMBIN TIME 10.5 Seconds (9.6-11.5)
[2021-08-07] MEDS ORDERED: DEXAMETHASONE 4 MG/ML, 1ML ONE (08:06)
[2021-08-07] MEDS ORDERED: CEFAZOLIN 1,000 MG ONE ×2 (08:08)
[2021-08-07] MEDS ORDERED: HYDROmorphone 1 MG/ML, 1ML INJ IVPush PRN (09:00)
[2021-08-07] MEDS ORDERED: hydrALAzine 20 MG/ML, 1ML IV PRN (09:00)
[2021-08-07] MEDS ORDERED: LABETALOL 5MG/ML, 20ML IV PRN (09:00)
[2021-08-07] MEDS ORDERED: ONDANSETRON 2MG/ML, 2ML IVPush PRN ×2 (09:00→11:00)
[2021-08-07] MEDS ORDERED: PROMETHAZINE 25 MG/ML, 1ML IVPush PRN (09:00)
[2021-08-07] MEDS ORDERED: ACETAMINOPHEN 325 MG TABLET PO PRN ×2 (09:00→11:00)
[2021-08-07] MEDS ORDERED: EPINEPHRINE 1 MG/ML, 1ML ONE (09:44)
[2021-08-07] MEDS ORDERED: ONDANSETRON 2MG/ML, 2ML ONE (09:52)
[2021-08-07] MEDS ORDERED: PROMETHAZINE 25 MG/ML, 1ML IM PRN (11:00)
[2021-08-07] MEDS: TRANEXAMIC ACID 1,500 MG in SODIUM CHLORIDE 0.9% 100 ML IV ONE (11:00)
[2021-08-07] MEDS ORDERED: FENTANYL PF 100 MCG/2ML ONE (11:00)
[2021-08-07] MEDS ORDERED: HYDROmorphone 1 MG/ML, 1ML INJ IM PRN (11:00)
[2021-08-07] MEDS ORDERED: morphine SULFATE 10 MG/ML, 1ML IVPush PRN (11:00)
[2021-08-07] MEDS ORDERED: OXYcodone 5 MG/5 ML ORAL.SOL UDC PO PRN (11:00)
[2021-08-07] MEDS ORDERED: METHOCARBAMOL 1,000 MG in DEXTROSE 5% 100 ML IV ONE (11:00)
[2021-08-07] MEDS ORDERED: OXYcodone 5 MG/5 ML ORAL.SOL UDC ONE (11:00)
[2021-08-07] MEDS ORDERED: KETOROLAC 30 MG/1 ML IVPush SCH ×2 (11:00)
[2021-08-07] MEDS: FENTANYL PF 100 MCG/2ML IV PRN ×3 (11:05→11:21)
[2021-08-07] MEDS: OXYcodone 5 MG/5 ML ORAL.SOL UDC PO PRN ×2 (11:21→13:10)
== END 2021-08-07 15:30 | disposition home or self-care (01) ==
LOC: OUT 06:20
PROVIDERS: ATTEND Orthopaedic Surgery Orthopaedic Surgery of the Spine
DX: M17.12 Unilateral primary osteoarthritis, left knee (principal); I10 Essential (primary) hypertension; G47.33 Obstructive sleep apnea (adult) (pediatric); Z20.822 Contact with and (suspected) exposure to COVID-19; Z79.01 Long term (current) use of anticoagulants; Z79.899 Other long term (current) drug therapy
CPT/HCPCS: 27447; 36415; 64447; 73560; 85025; 85610; 85730; 86850; 86900; 87635; 97162; C1713; C1776; J0171; J0690; J1100; J1885; J2250; J2405; J2704; J2800; J3010; J3370; J7120